=== PATIENT | female | born 2005 | race Caucasian/White ===

== ENCOUNTER 2024-12-18 09:39 | Emergency (ER) | payer BC, SELFPAY ==
[2024-12-18 09:42] VITALS: BP 118/83; PULSE 95; TEMP 36.6; O2SAT 98
[2024-12-18 10:08] LABS: Glucose 100 mg/dL (Negative)
--- NOTE | 2024-12-18 10:15 | DI.CT_ITS ---
Exam(s) CT ABDOMEN PELVIS W EXAM: CT ABDOMEN PELVIS W CLINICAL HISTORY: b/l lower quadrant abd pain, vaginal pain TECHNIQUE: Imaging Protocol: Axial computed tomography images with coronal and sagittal reformatted images were created and reviewed. CONTRAST MATERIAL: Intravenous: Omnipaque 350 Contrast volume:100 mL Oral: No COMPARISON: No exams were available for comparison FINDINGS: ABDOMEN: Lung Bases: No acute abnormality. Liver: Normal density. No measurable mass. Portal, Superior Mesenteric, and Splenic Veins: Unremarkable. Gallbladder and Biliary Tract: No radiodense calculus or dilation. Pancreas: Normal density, no abnormal calcifications or inflammatory process. Spleen: Normal. Adrenals: No masses seen. Kidneys: Normal size, contour and axis. No radiodense stones or obstructive uropathy. No masses seen. Abdominal Aorta: Abdominal portion non-dilated. Bowel: No obstruction or bowel wall thickening. Appendix is unremarkable. Peritoneal Cavity: No ascites, collection or mesenteric inflammatory response. No free air. Lymph Nodes: Within normal limits. Bones: Within normal limits for the patient's age. Soft Tissues: Unremarkable. PELVIS: Bladder: Symmetric distention, no gross wall thickening. Reproductive Organs: Unremarkable as visualized. Lymph Nodes: Within normal limits. Bones: Within normal limits for the patient's age. IMPRESSION: No acute abdominal or pelvic process. RADIATION DOSE DELIVERED: 865.82mGy.cm Total DLP DATA REPOSITORY: All CT scans at this facility are submitted to the National Radiology Data Registry (NRDR) Dose Index Registry (DIR) with the [employer] (A[employer]). RADIATION OPTIMIZATION: All CT scans at this facility use at least one of these dose optimization techniques: automated exposure control; mA and/or kV adjustment per patient size (includes targeted exams where dose is matched to clinical indication); or iterative reconstruction.
[2024-12-18 10:17] LABS: C & S Indicated? No; RBC Negative HPF (0-2)
--- NOTE | 2024-12-18 10:21 | W.ED.GENAD ---
Discharge Plan Disposition Patient Disposition: Home Condition: Stable Discharge Details Clinical Impression: Candidal vaginitis, Bacterial vaginosis Primary Care Provider: Unknown,Unknown ED Provider: Jenny Cano Home Meds and New Rx's Prescriptions: New fluconazole 150 mg tablet 150 mg PO ONCE Qty: 1 0RF Rx Instructions: as a single dose, take if still having vaginal symptoms on 12/20 metronidazole 500 mg tablet 500 mg PO BID 7 Days Qty: 14 0RF No Action Zepbound 12.5 mg/0.5 mL pen injector 12.5 mg subcut QWEEK Discharge Instructions Instructions: Bacterial Vaginosis ED, Vaginal Yeast Infection, Adult ED Additional Instructions: You were seen in the emergency department today for vaginal and abdominal pain. In our department you had a full physical examination performed, had reassuring laboratory studies, and had a CT scan of your abdomen that did not show any abnormalities to account for your symptoms. Your vaginitis and vaginosis swab was positive for yeast and bacterial vaginosis. These are not sexually transmitted infections, they are typical organisms that live on her body that can grow out of control, especially when you have recent antibiotic use. You must complete your course of amoxicillin for your strep as prescribed. In addition, I am starting you on an antibiotic called metronidazole which will treat the bacterial vaginosis. Please take all this medication until it is gone, even if you start to feel better. Do not drink while you are taking this medication as it will cause you to feel significantly ill. Please start taking a probiotic or eat yogurt with live and active cultures daily while on antibiotics. You received your dose of fluconazole, which is treatment for the yeast infection. If in 3 days you are still having vaginal symptoms, please take the second dose that I prescribed to you. I have sent you home with a very short course of nausea medicine to use to maintain your hydration. Please follow-up with your primary care provider in the next few days to discuss this visit and any symptoms that change, worsen, or persist. Thank you for allowing us to be part of your care. HPI General Mode of arrival: ambulatory. Date/Time Provider Initiated Documentation: 12/18/24 09:39. Limitations to Documentation: no limitations. Information obtained by: patient, family and old records reviewed. HPI Narrative: This is a 19-year-old female patient presenting for evaluation of vaginal and lower abdominal pain. She reports that since Tuesday she has had pain in her vagina during sex, states that she has also had bilateral lower quadrant pain that has gradually worsened. She took some Tylenol on Tuesday without significant improvement. She states that she has abdominal pain all the time, it does not seem to go away though it is worsened during intercourse. Last normal menstrual period was in August, she does take oral control pills. States that she has not noted any significant vaginal discharge, is not concerned for STIs as she only has 1 sexual partner. States that she is currently being treated for strep throat, is on a course of amoxicillin, has had numerous courses of antibiotics for strep so far this year. No history of abdominal surgeries, but she does endorse some nausea with vomiting and poor p.o. intake. No changes in bowel habits, no dysuria reported. Related Data Home Medications ?Medication ?Instructions ?Recorded ?Confirmed fluconazole 150 mg tablet 150 mg PO ONCE #1 tab 12/18/24 metronidazole 500 mg tablet 500 mg PO BID 1 week #14 tabs 12/18/24 tirzepatide (weight loss) 12.5 12.5 mg subcut QWEEK 12/18/24 12/18/24 mg/0.5 mL subcutaneous pen injector (Zepbound) Previous Rx's ?Medication ?Instructions ?Recorded fluconazole 150 mg tablet 150 mg PO ONCE #1 tab 12/18/24 metronidazole 500 mg tablet 500 mg PO BID 1 week #14 tabs 12/18/24 Allergies Allergy/AdvReac Type Severity Reaction Status Date / Time No Known Allergies Allergy Unverified 12/18/24 09:46 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 CV: Appears well perfused, heart is regular rate and rhythm, strong distal pulses Abdomen: Non-distended, soft, tender to palpation in the left and right lower quadrants, left slightly greater than right, mild suprapubic tenderness to palpation. No rigidity, rebound, guarding : Pelvic examination supervised by BHANU Beard, revealing normal external female genitalia, no fluctuance, swelling, or overlying skin changes are noted. The patient does have tenderness at the vaginal introitus, no significant cervical motion tenderness, thick white discharge is appreciated in small volumes. No vaginal bleeding, patient tolerates speculum examination which does not reveal any abnormalities MSK: Moves 4 extremities without apparent limitation in ROM Skin: Visualized skin without rashes, cyanosis. Neuro: Normal Gait, no obvious focal deficits or facial asymmetry. Speaks in full, clear sentences. Psych: Appropriate for situation.. Course Vital Signs Vital signs: Vital Signs Temperature 36.6 C 12/18/24 09:42 Pulse 95 H 12/18/24 09:42 Blood Pressure 118/83 12/18/24 09:42 Pulse Oximetry 98 12/18/24 09:42 Temperature 36.6 C 12/18/24 09:42 Temperature Source Oral 12/18/24 09:42 Pulse 95 H 12/18/24 09:42 Blood Pressure 118/83 12/18/24 09:42 Pulse Oximetry 98 12/18/24 09:42 Lab/Test Results Lab/Test Results: Laboratory Tests Range/Units 12/18/24 09:50 Urine Color (Yellow) Yellow Urine Clarity (Clear) Clear Urine pH (5-8) 8.5 H Ur Specific [place] (1.005-1.025) 1.020 Urine Protein (Neg-Trace) mg/dL 30 H Urine Ketones (Negative) mg/dL >=160 H Urine Blood (Negative) Negative Urine Nitrite (Negative) Negative Urine Bilirubin (Negative) Small H Urine Urobilinogen (Up to 0.2) mg/dL 1.0 H Ur Leukocyte Esterase (Negative) Moderate H Urine RBC (0-2) HPF Negative Urine WBC (0-5) HPF 10-20 H Ur Epithelial Cells (Negative) HPF Many Urine Crystals (Negative) HPF Negative Urine Bacteria (Negative) HPF Few Urine Casts (Negative) LPF Negative Urine Mucus (Negative) Trace Ur Culture Indicated? No Urine Glucose (Negative) mg/dL 100 H POC- Test(urine) Negative Medical Decision Making This is a 19-year-old female patient presenting for evaluation of vaginal pain during intercourse and lower abdominal pain. My differential includes, but is not limited to, vaginitis/vaginosis given the recent antibiotic use. G Considered ectopic , PID/TOA, ovarian cyst, ovarian torsion. Also considered other intra-abdominal pathologies includingastritis/PUD, gastroenteritis, pancreatitis, cholecystitis and gallbladder pathology, hepatitis, appendicitis, diverticulitis, small bowel obstruction. Considered urinary pathology including UTI, nephrolithiasis. Considered mesenteric ischemia, aortic pathology, though this is less concerning based on the patient's history and physical exam. We will send off a vaginal pathogen's panel, and obtain labs to include CBC, CMP, magnesium, lipase, and urinalysis. [id number] test was negative. We will obtain a CT of the abdomen and pelvis to evaluate for abnormalities to explain her symptoms. I will provide her with a liter of IV fluids for rehydration, Zofran for her nausea and Toradol for her pain. - I independently interpreted the laboratory studies, which show no significant leukocytosis, anemia, or thrombocytopenia. The chemistry panel is without evidence of electrolyte abnormality, kidney dysfunction, or liver injury. Lipase is low, test negative, urinalysis was unfortunately contaminated, does show some ketones consistent with the patient's report of poor oral intake, few bacteria and in the absence of dysuria I have a lower concern for urinary tract infection. CT scan reviewed by myself, and does not show any acute abnormalities to explain the patient's symptoms. Her vaginitis/vaginosis panel is positive for Marina and Gardnerella. I informed the patient of these findings, provided her with a dose of fluconazole as well as a prescription for metronidazole. A second dose of fluconazole was also sent to her pharmacy in the event that she is still symptomatic at 72 hours. A short course of Zofran was provided to help her maintain her oral hydration, and I did clinical counselor the patient on starting probiotics, completing her antibiotic course for strep throat, and close follow-up with her PCP. At this time, the patient has had a full medical evaluation and is safe for discharge to home. They are hemodynamically stable, ambulatory, and tolerating PO. They are understanding of the follow-up plan and return precautions. They left our facility without incident. Jenny Cano MD [facility] All Active Problems (Updated 12/18/24 @ 11:58 by Jenny Cano MD) Bacterial vaginosis (Acute) Candidal vaginitis (Acute) Social History Smoking/Tobacco Use Status: Current every day Tobacco Type: e-cigarettes Smoking risk assessment performed?: Yes Alcohol Intake: current Alcohol Intake frequency: a few times a week Alcohol type: beer Drug use: Occasionally Substance use type: marijuana Details: patient state she use marijuana every other day Do you feel safe at home: Yes Do you feel safe in your relationship?: Yes
[2024-12-18] MEDS: Ketorolac 15 MG/ML VIAL IVP (10:35)
[2024-12-18] MEDS: Ondansetron 4 MG/2 ML VIAL IVP (10:36)
[2024-12-18] MEDS: Lactated Ringers 1,000 ML 1000 ML IV (10:36)
[2024-12-18] MEDS: Normal Saline Flush 10 ML SYR IVP (11:00)
[2024-12-18] MEDS: Normal Saline - Diluent 50 ML VIAL IJ (11:00)
[2024-12-18] MEDS: Omnipaque 350 MG/ML 500 ML BTL-Imaging package IJ (11:01)
[2024-12-18 11:03] LABS: Abs Immature Grans 0.02 10^3/uL (0.0-0.06); HCT 40.8 % (36.0-46.0); HGB 13.7 g/dL (11.2-15.7); Immature Grans % 0.3 %; MCH 28.2 pg (27.0-33.0); MCHC 33.6 % (32.0-36.0); MCV 84 fL (80-95); MPV 10.5 fL (8.0-11.0); Platelet Count 372 10^3/uL (130-400); RBC 4.85 10^6/uL (3.93-5.22); RDW 13.2 % (11.7-14.6); RDW-SD 40.6 fL; WBC 6.78 10^3/uL (4.4-10.8)
[2024-12-18 11:18] LABS: ALT 41 U/L (14-59); AST 27 U/L (15-37); Albumin 4.3 g/dL (3.4-5.0); Alkaline Phosphatase 91 U/L (46-116); Anion Gap 11.5 mmol/L (3-11); BUN 6 mg/dL (7-18); Bilirubin, Total 0.5 mg/dL (0.2-1.0); CO2 26.5 mmol/L (21.0-32.0); Calcium 9.2 mg/dL (8.5-10.1); Chloride 101 mmol/L (98-107); Estimated GFR 93.28 (mL/min/1.73m2); Glucose 84 mg/dL (74-106); Lipase 15 U/L (<78); Magnesium 2.1 mg/dL (1.8-2.4); Potassium 3.9 mmol/L (3.5-5.1); Sodium 139 mmol/L (136-145); Total Protein 8.2 g/dL (6.4-8.2)
[2024-12-18] MEDS: Fluconazole 150 MG TAB PO (12:16)
[2024-12-18] MEDS: Ondansetron O.D.T. 4 MG TABEF, 3 TABS/BTL PO (12:16)
[2024-12-18 12:26] VITALS: BP 112/72; PULSE 88; RESP 16; TEMP 36.6; O2SAT 100
== END 2024-12-18 12:29 | disposition home or self-care (01) ==
PROVIDERS: Emergency Provider Emergency Medicine
DX: B37.31 Acute candidiasis of vulva and vagina (principal); N76.0 Acute vaginitis
CPT/HCPCS: 99285; 99284; 81025; 36415; 96374; 96375; 80053; 83690; 96361; 74177; 81003; 81015; 83735; 85025; 87480; 87510; 87660; J1885; J2405